=== PATIENT | female | born 1960 | race African-American/Black ===

== ENCOUNTER → 2021-07-02 10:20 | Outpatient (CLI) | payer BC, SELFPAY ==
--- NOTE | ~2021-07-02 | XR_ITS ---
EXAMINATION: XR shoulder RT min 2V DATE: 07/02/2021 10:56 INDICATION: Right shoulder pain. TECHNIQUE: 4 views of right shoulder were obtained. COMPARISON: None. FINDINGS: Bone alignment is normal. No fracture. There is mild osteoarthritis of glenohumeral joint a nd acromioclavicular joint. IMPRESSION: 1. Mild polyarticular osteoarthritis. Reviewed, dictated and finalized at location A.
--- NOTE | ~2021-07-02 | XR_ITS ---
EXAMINATION: XR chest 2V DATE: 07/02/2021 10:56 INDICATION: Dyspnea. Right shoulder pain. TECHNIQUE: Frontal and lateral views of the chest were obtained. COMPARISON: Chest 2 views 02/27/2006 FINDINGS: The chest demonstrates clear lungs without pneumonia, pleural effusion, or pneumothorax. Th e heart size is normal. IMPRESSION: 1. No acute cardiopulmonary disease. Reviewed, dictated and finalized at location A.
== END ==
PROVIDERS: PCP Nurse Practitioner Family; Visit Provider Nurse Practitioner Family
DX: R06.00 Dyspnea, unspecified (principal); M25.511 Pain in right shoulder; M19.011 Primary osteoarthritis, right shoulder
CPT/HCPCS: 71046; 73030

== ENCOUNTER 2021-07-19 10:52 | Outpatient (CLI) | payer BC, SELFPAY | END 2021-07-19 10:53 | disposition home or self-care (01) | LOC: ANHAUDIO 10:53 | PROVIDERS: PCP Nurse Practitioner Family; Visit Provider Nurse Practitioner Family | DX: H90.3 Sensorineural hearing loss, bilateral (principal) | CPT/HCPCS: 92552; 92556; 92567 ==

== ENCOUNTER 2022-10-31 07:27 | Outpatient (CLI) | payer BC, SELFPAY ==
--- NOTE | 2022-10-31 | ECHO_ITS ---
Patient Info Name: Clare Lee Age: 62 years : 1960 Gender: Female Ht: 64 in Wt: 140 lbs BSA: 1.70 m2 HR: 74 bpm BP: 132 / 84 mmHg Heart Rhythm: Sinus Rhythm Technical Quality: Fair Exam Date: 10/31/2022 7:50 AM Exam Location: [facility] Patient Status: Outpatient Admit Date: 10/31/2022 Staff Ordering Physician: Anil, Aranza LARA [employer] Operating Engineer: Jordyn Barr RDCS Attending Provider: Anil, Aranza LARA Exam Type: CA echo doppler color flow Study Info Indications R07.89 - Other chest pain Complete two-dimensional, color flow and Doppler transthoracic echocardiogram is performed. Summary 1. Complete two-dimensional, color flow and Doppler transthoracic echocardiogram is performed. 2. Left ventricular chamber dimension is normal. 3. Left ventricular systolic function is normal, estimated at 55-60%. 4. There is no increased left ventricular wall thickness. 5. The left ventricular diastolic function is normal. 6. Global longitudinal strain is mildly elevated at -15 %. 7. There is no mitral valve regurgitation. 8. There is no aortic valve stenosis. 9. There is trace tricuspid valve regurgitation. 10. No pulmonary hypertension, estimated pulmonary arterial systolic pressure is 27 mmHg. Left Ventricle Left ventricular chamber dimension is normal. Left ventricular systolic function is normal, estimated at 55-60%. There is no increased left ventricular wall thickness. The left ventricular diastolic function is normal. Global longitudinal strain is mildly elevated at -15 %. Right Ventricle Right ventricular chamber dimension is normal. Right ventricular systolic function is normal. Left Atria Left atrial chamber dimension is normal. Right Atria Right atrial chamber dimension is normal. Aortic Valve The aortic valve is trileaflet. There is no aortic valve stenosis. There is no aortic valve regurgitation. Mitral Valve The mitral valve has normal leaflets. There is no mitral valve regurgitation. The mitral valve annulus is mildly calcified. Tricuspid Valve The tricuspid valve leaflets are normal. There is trace tricuspid valve regurgitation. No pulmonary hypertension, estimated pulmonary arterial systolic pressure is 27 mmHg. Pericardium/Pleural The pericardium appears normal. There is no pericardial effusion. Inferior Vena Cava Normal inferior vena cava with >50% collapse upon inspiration consistent with normal right atrial pressure, 5 mmHg. Aorta The aortic root size at the sinus of Valsalva is normal. There is mild aortic atherosclerosis. Left Ventricular Outflow Tract Name Value Normal LVOT 2D LVOT Diameter 1.9 cm LVOT Doppler LVOT Peak Gradient 3 mmHg LVOT Mean Gradient 2 mmHg LVOT VTI 18 cm LVOT VTI/AV VTI Ratio 1.1 LVOT Stroke Volume 49 ml LVOT CO 3.3 l/min LVOT CI 2.0 l/min/m2 Pulmonic Valve
--- NOTE | 2022-11-02 17:43 | P.PCNPFT_ITS ---
PFT Procedure Performed PFT Procedure Performed Spirometry with Pre/Post Bronchodilator Plethysmography (Lung Vol) Diffusing Cap (DLCO) Flow Vol Loop PFT Interpretation DOS: 10/31/2022 REQUESTING: Aranza Ma [facility] REASON FOR TESTING: dyspnea on exertion PULMONARY FUNCTION TESTS Results are reliable and reproducible. Spirometry: Pre-bronchodilator FEV1 is 2.26 L, 105% predicted, normal. Pre- bronchodilator FVC is 3.08 L, 113% predicted, normal. FEV1/ FVC ratio is 73%, in the normal range. After bronchodilator, FEV1 drops by 17%, 1.87 L, 86% predicted, remains normal. After bronchodilator, forced vital capacity increases by 2%, 3.13 L, 115% predicted. The FEV1/ FVC ratio is 60% which is below normal. Lung volumes: Total lung capacity 3.23 L, 72%, decreased, consistent with mild restriction. residual volume is 0.15 L, extremely low, 8% predicted. RV/TLC is 5%. This is extremely below the lower limit of normal. Airway resistance is 2.20, 163%, increased. Diffusion: DLCO is 14.3, 66%, mildly reduced. DLCO /VA is 4.44 L, 100%, normal. Flow volume loop: Mild restrictive pattern. IMPRESSION: This study shows a mild restrictive pattern, no obstruction, mild diffusion impairment that corrects for alveolar volume. There is no improvement with bronchodilator. No prior studies are available for comparison. Idania Sahni MD
--- NOTE | 2022-11-02 18:13 | WPDSIXMINUTE ---
Six Minute Walk Procedure Procedure Performed Pulmonary Stress Test (6 min walk) Six Minute Walk Six Minute Walk: ? DOS: 10/31/2022 ? REQUESTING:? Aranza Ma [facility] ? REASON FOR TESTING:? dyspnea on exertion SIX MINUTE WALK This study was conducted per ATS protocol. The initial saturation was 99% and the pulse was 78. The patient walked for 6 minutes while breathing room air, taking short breaks throughout the study due to shortness of breath. The duration of time stopping and resting was 60 seconds. Saturation at the end of the walk was 100% and pulse was 72. There was no drop in saturation. Maximum pulse during walking was 104 beats per minute. The patient had a Douglas dyspnea score of 3 during the walk and a Douglas dyspnea score of 4 during recovery. Distance walked is 274 m/ 900 ft. IMPRESSION: No supplemental O2 is indicated with exertion. There was no desaturation. The distance walked is less than expected for age. She may not have had enough cardiopulmonary reserve to walk farther and faster to demonstrate desaturation. Idania Sahni MD
== END 2022-10-31 07:28 | disposition home or self-care (01) ==
LOC: ANHCARD 07:29
PROVIDERS: PCP Nurse Practitioner Family; Visit Provider Nurse Practitioner
DX: R07.89 Other chest pain (principal); R06.09 Other forms of dyspnea
CPT/HCPCS: 93306; 94060; 94618; 94726; 94729

== ENCOUNTER 2023-01-02 07:56 | Outpatient (CLI) | payer BC, SELFPAY ==
[2023-01-02 08:40] LABS: CRP < 0.5 mg/dL (<1.0)
[2023-01-02 08:48] LABS: Erythrocyte Sedimentation Rate 25 mm/hr (0-20)
[2023-01-02 09:09] LABS: Vitamin D 25 Hydroxy 36.2 ng/mL
[2023-01-07 20:07] LABS: Alpha-1-Antitrypsin, QN 98 mg/dL (83-199)
== END 2023-01-02 07:57 | disposition home or self-care (01) ==
PROVIDERS: PCP Nurse Practitioner Family; Visit Provider Nurse Practitioner
DX: R06.09 Other forms of dyspnea (principal); J98.4 Other disorders of lung; Z86.16 Personal history of COVID-19; R53.83 Other fatigue; E88.01 Alpha-1-antitrypsin deficiency
CPT/HCPCS: 36415; 82103; 82306; 85652; 86038; 86039; 86140; J7674